=== PATIENT | female | born 1945 | race Caucasian/White ===

== ENCOUNTER 2019-02-08 10:32 | Emergency (ER) | payer MEDICARE, BC ==
[~2019-02-08] VITALS: Ht 165.1 cm; Wt 63.6 kg
[2019-02-08 13:10] VITALS: BP 139/65
--- NOTE | 2019-02-08 13:18 | NUR ---
mel cargo on its way to pipck up patient, dc via [facility]
== END 2019-02-08 14:00 | disposition home or self-care (01) ==
LOC: ER 10:33
DX: S00.03XA Contusion of scalp, initial encounter (principal); F03.90 Unspecified dementia, unspecified severity, without behavioral disturbance, psychotic disturbance, mood disturbance, and anxiety; E78.00 Pure hypercholesterolemia, unspecified; I10 Essential (primary) hypertension; E11.9 Type 2 diabetes mellitus without complications; W18.39XA Other fall on same level, initial encounter; Y93.89 Activity, other specified; Y92.89 Other specified places as the place of occurrence of the external cause; Y99.8 Other external cause status
CPT/HCPCS: 70450; 99284

== ENCOUNTER 2019-02-10 13:40 | Emergency (ER) | payer MEDICARE, BC ==
[~2019-02-10] VITALS: Ht 165.1 cm; Wt 63.0 kg
[2019-02-10 13:55] VITALS: BP 116/76
--- NOTE | 2019-02-10 14:41 | NUR ---
Pt transported via gurney to CT for scan.
== END 2019-02-10 15:34 | disposition home or self-care (01) ==
LOC: ER 13:41
DX: S00.83XA Contusion of other part of head, initial encounter (principal); F03.90 Unspecified dementia, unspecified severity, without behavioral disturbance, psychotic disturbance, mood disturbance, and anxiety; E78.00 Pure hypercholesterolemia, unspecified; I10 Essential (primary) hypertension; E11.9 Type 2 diabetes mellitus without complications; W18.39XA Other fall on same level, initial encounter; Y93.89 Activity, other specified; Y92.89 Other specified places as the place of occurrence of the external cause; Y99.8 Other external cause status
CPT/HCPCS: 70450; 72125; 99284

== ENCOUNTER 2019-02-25 14:38 | Emergency (ER) | payer MEDICARE, BC ==
[~2019-02-25] VITALS: Ht 165.1 cm; Wt 59.1 kg
[2019-02-25 14:51] VITALS: BP 132/82
--- NOTE | 2019-02-25 15:34 | NUR ---
MCKAYLA LINDO CALLED AND DISCHARGE REPORT GIVEN TO RN. INFORMED THAT CT WAS NEGATIVE FOR INTERCRANIAL HEMORRHAGE AND SPINAL FX. PT'S IS IN ROUTE TO PICK PT UP AND TRANSPORT HER BACK TO THEIR FACILITY
== END 2019-02-25 15:50 | disposition home or self-care (01) ==
LOC: ER 14:40
DX: S00.83XA Contusion of other part of head, initial encounter (principal); F03.90 Unspecified dementia, unspecified severity, without behavioral disturbance, psychotic disturbance, mood disturbance, and anxiety; E78.00 Pure hypercholesterolemia, unspecified; I10 Essential (primary) hypertension; E11.9 Type 2 diabetes mellitus without complications; W01.198A Fall on same level from slipping, tripping and stumbling with subsequent striking against other object, initial encounter; Y93.89 Activity, other specified; Y92.89 Other specified places as the place of occurrence of the external cause; Y99.9 Unspecified external cause status
CPT/HCPCS: 70450; 72125; 99284

== ENCOUNTER 2020-12-13 16:03 | Emergency (ER) | payer MEDICARE, BC ==
[~2020-12-13] VITALS: Ht 165.1 cm; Wt 72.7 kg
--- NOTE | 2020-12-13 17:36 | NUR ---
ZECHARIAH CARGO ETA 45MINS @ [id number]
[2020-12-13 17:42] VITALS: BP 102/80
--- NOTE | 2020-12-13 17:45 | NUR ---
report given to Trinity, staff at [place],
== END 2020-12-13 19:43 | disposition home or self-care (01) ==
LOC: ER 16:04
DX: S02.2XXA Fracture of nasal bones, initial encounter for closed fracture (principal); S09.90XA Unspecified injury of head, initial encounter; R04.0 Epistaxis; E78.00 Pure hypercholesterolemia, unspecified; I10 Essential (primary) hypertension; E11.9 Type 2 diabetes mellitus without complications; G30.9 Alzheimer's disease, unspecified; F02.80 Dementia in other diseases classified elsewhere, unspecified severity, without behavioral disturbance, psychotic disturbance, mood disturbance, and anxiety; W19.XXXA Unspecified fall, initial encounter; Z91.81 History of falling; Y93.59 Activity, other involving other sports and athletics played individually; Y92.89 Other specified places as the place of occurrence of the external cause; Y99.8 Other external cause status
CPT/HCPCS: 70450; 99284